=== PATIENT | male | born 1995 | race Caucasian/White ===

== ENCOUNTER 2020-07-30 03:37 | Emergency (ER) | payer SELFPAY ==
[~2020-07-30] VITALS: Ht 180 cm; Wt 120.1 kg
[2020-07-30 03:59] VITALS: BP 130/88
--- NOTE | 2020-07-30 04:14 | ED GU-Male ---
General Chief Complaint: Male Reproductive Stated Complaint: DISCHARGE Source: patient Exam Limitations: no limitations History of Present Illness Date Seen by Provider: Jul 30, 2020 Time Seen by Provider: 03:57 Initial Comments Patient presents ER by private conveyance with chief complaint that he has had 2-3 days of discharge from the urethra. No dysuria fever chills hematuria diarrhea. He says he's had the STD once before couple years ago tested in [place], [place] but did not receive the results and does not know what he had. He was treated with antibiotics at that time. Allergies and Home Medications Allergies Coded Allergies: No Known Drug Allergies (Unverified , 07/30/20) Home Medications No Active Prescriptions or Reported Meds Patient Home Medication List Home Medication List Reviewed: Yes Review of Systems Review of Systems Constitutional: No chills, No diaphoresis EENTM: No ear discharge, No hearing loss Respiratory: No cough, No short of breath Cardiovascular: No chest pain, No palpitations Gastrointestinal: No abdominal pain, No nausea, No vomiting Genitourinary: see HPI, discharge; denies hematuria, denies incontinence, denies pain All Other Systemes Reviewed Negative Unless Noted: Yes Past [id number]-[id number] Hx Patient Social History Alcohol Use: Denies Use Recreational Drug Use: No Smoking Status: Never a Smoker Recent Foreign Travel: No Contact w/Someone Who Travel: No Physical Exam Vital Signs Capillary Refill : Height, Weight, BMI Height: '" Weight: lbs. oz. kg; BMI Method: General Appearance: WD/WN, no apparent distress HEENT: normal ENT inspection, pharynx normal Neck: full range of motion, normal inspection Cardiovascular: normal peripheral pulses, regular rate, rhythm Respiratory: no respiratory distress, no accessory muscle use Extremities: normal inspection, normal capillary refill Neurologic/Psychiatric: alert, oriented x 3 Progress/Results/Core Measures Suspected Sepsis SIRS Temperature: Pulse: Respiratory Rate: Blood Pressure / Mean: Results/Orders My Orders Orders - DENISE RUIZ Ua Culture If Indicated (07/30/20 04:06) Neis Ric Dna Urine Test (07/30/20 04:06) Chlamydia Trachomatis Urine (07/30/20 04:06) Ceftriaxone For Im Use (Rocephin For Im (07/30/20 04:15) Azithromycin Tablet (Zithromax Tablet) (07/30/20 04:15) Lidocaine 1% Inj 20 Ml (Xylocaine 1% Inj (07/30/20 04:15) Vital Signs/I&O Capillary Refill : Progress Note : Time: 04:11 Progress Note Urinalysis with gonorrhea and chlamydia. Plan to give him 250 mg IM Rocephin, gram of azithromycin and allow him to go home. Aseptic vital signs presentation. Departure Impression Primary Impression: Urethritis, nonspecific Disposition: 01 HOME, SELF-CARE Condition: Stable Departure-Patient Inst. Decision time for Depature: 04:12 Referrals: NO,LOCAL PHYSICIAN (PCP/Family) Primary Care Physician Patient Instructions: Urethritis (DC) Add. Discharge Instructions: We will have the test results back in about 2-3 days. We'll call you if they're positive. Follow-up with your primary care doctor for further results. The antibiotics given to you should treat most sexually transmitted infections. If you're having fever, nausea, increasing pain or other worrisome symptoms then you may need to follow back primary care doctor or return to the nearest ER. All discharge instructions reviewed with patient and/or family. Voiced understanding. Scripts No Active Prescriptions or Reported Meds DENISE RUIZ Jul 30, 2020 04:14
[2020-07-30] MEDS ORDERED: AZITHROMYCIN 250 MG TAB (ZITHROMAX) PO ONE (04:15)
[2020-07-30] MEDS ORDERED: cefTRIAXone 250 MG/ML vial (IM ONLY) IM ONE (04:15)
[2020-07-30] MEDS ORDERED: LIDOCAINE 1% INJ 20 ML 20 ML VIAL INJ ONE (04:15)
[2020-07-30 04:18] LABS: BILIRUBIN,URINE NEGATIVE (NEGATIVE); CLARITY,URINE CLEAR; COLOR,URINE YELLOW; GLUCOSE, URINE (UA) NEGATIVE (NEGATIVE); KETONES,URINE NEGATIVE (NEGATIVE); LEUKOCYTE ESTERASE ,URINE NEGATIVE (NEGATIVE); NITRITE,URINE NEGATIVE (NEGATIVE); PROTEIN,URINE TRACE (NEGATIVE)
[2020-07-30 04:39] LABS: BACTERIA,URINE TRACE /HPF; RBC,URINE 50-100 /HPF
== END 2020-07-30 04:25 | disposition home or self-care (01) ==
LOC: ER 03:40
DX: N34.2 Other urethritis (principal)
CPT/HCPCS: 81000; 87088; 99284